=== PATIENT | female | born 1985 | race Caucasian/White ===

== ENCOUNTER 2017-01-23 12:32 | Inpatient (IN) | payer BC, OTHER ==
[2017-01-23] MEDS: DEXTROSE 5%-LACTATED RINGERS 1,000 ML IV SCH ×2 (13:10→18:15)
[2017-01-23 13:23] VITALS: BMI 32.1
[2017-01-23 13:48] LABS: BASOPHIL 0.2 % (0-2.0); EOSINOPHIL 0.6 % (0-4.5); MCH 29.2 pg (25.7-33.7); MCHC 33.7 g/dl (32.0-36.0); MEAN CELL VOLUME 86.7 fl (80-96); MEAN PLT VOLUME 9.9 fl (7.5-11.1); NEUTROPHILS 81.4 % (42.8-82.8); PLATELET COUNT 140 K/MM3 (134-434); RDW 13.8 % (11.6-15.6); WHITE BLOOD COUNT 12.7 K/mm3 (4.0-10.0)
[2017-01-23 14:08] LABS: CALCIUM 8.8 mg/dL (8.5-10.1); COCKROFT - GAULT 185.249; CREATININE 0.6 mg/dL (0.55-1.02)
[2017-01-23 14:13] LABS: INR 0.97 (0.82-1.09); PROTHROMBIN TIME (PATIENT) 10.7 SEC (9.98-11.88)
[2017-01-23 14:43] LABS: HIV 1 & 2 AB NEGATIVE; HIV 1 AGp24 NEGATIVE
--- NOTE | 2017-01-23 18:32 | HP ---
Past Medical History - Primary Care Physician PCP:: Jorge Turner - Admission Chief Complaint: 31 yo P0 @ 40.5wks with painful ctx, No VB, no LOF, + FM History of Present Illness: Patient presented to L&D with c/o ctx @ 12:32 she had overall Category 1 FHR, but had variable FHR deceleration x 1 History Source: Patient Limitations to Obtaining History: No Limitations - Past Medical History ...: 1 ...Para: 0 ...Term: 0 ...: 0 ...Spon : 0 ...Induced : 0 ...Multiple Gestation: 0 ...LMP: 04/10/16 ... Weeks Gestation by Dates: 41.1 ...EDC by Dates: 01/15/17 ...EDC by Sono: 01/18/17 - Past Surgical History Past Surgical History: Yes: None Hx Myomectomy: No Hx Transabdominal Cerclage: No - Smoking History Smoking history: Never smoked Have you smoked in the past 12 months: No - Alcohol/Substance Use Hx Alcohol Use: No History of Substance Use: reports: None - Social History Usual Living Arrangement: Yes: With Spouse History of Recent Travel: No (Herself or partner) Home Medications - Allergies Allergies/Adverse Reactions: Allergies Allergy/AdvReac Type Severity Reaction Status Date / Time No Known Allergies Allergy Verified 01/23/17 13:42 - Home Medications Home Medications: Ambulatory Orders Vit No.130/Iron/FA [ Tablet] 1 tab PO DAILY 01/23/17 Review of Systems - Review of Systems Constitutional: reports: No Symptoms Eyes: reports: No Symptoms HENT: reports: No Symptoms Neck: reports: No Symptoms Cardiovascular: reports: No Symptoms Respiratory: reports: No Symptoms Gastrointestinal: reports: No Symptoms Genitourinary: reports: No Symptoms Integumentary: reports: No Symptoms Neurological: reports: No Symptoms Endocrine: reports: No Symptoms Hematology/Lymphatic: reports: No Symptoms Psychiatric: reports: No Symptoms Physical Exam - Maternity Vital Signs: Vital Signs Temperature 98.9 F 01/23/17 18:00 Pulse Rate 80 01/23/17 18:00 Respiratory Rate 18 01/23/17 18:00 Blood Pressure 130/76 01/23/17 18:00 O2 Sat by Pulse Oximetry (%) Constitutional: Yes: Well Nourished Neck: Yes: WNL Lungs: Clear to auscultation Breast(s): Yes: WNL - Abdominal Exam/OB Fundal Height: 38 (EFW 7.5lb) Number of Fetuses: Single Presentation: Vertex (LOP presentation) Contractions: Yes Regularity: Regular Intensity: Moderate Monitor Mode: External Heart Rate (range): 140 Heart Rate Location: Midline Category: II Accelerations: Uniform Decelerations: Variable (occasional) - Vaginal Exam/OB Vaginal Bleediing: No Speculum Exam: No Dilatation (cm): FD Effacement (%): 100 Amniotic Membrane Status: Ruptured (clear) Amniotic Fluid: Yes: Clear Presentation: Vertex/Position Station: +1 - Physical Exam Musculoskeletal: Yes: WNL Extremities: Yes: WNL Edema: No Integumentary: Yes: WNL Deep Tendon Reflex Grade: Normal +2 ...Motor Strength: WNL Psychiatric: Yes: WNL - Labs Lab Results: CBC, BMP 01/23/17 13:25 01/23/17 13:25 Assessment/Plan 31yo P0 @ 41 wks in Labor Second stage, instructed on how to push MF status reasuring VSS, Afibrile GBS neg anticipate
--- NOTE | 2017-01-23 19:23 | PN ---
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
[2017-01-23] MEDS ORDERED: D5W-LR W/ 20 UNITS OXYTOCIN 1,000 ML IV ONE (20:45)
[2017-01-23] MEDS ORDERED: IBUPROFEN 600 MG TABLET (FP) PO PRN (20:59)
[2017-01-23] MEDS ORDERED: BISACODYL 10 MG SUPP.RECT RC PRN (20:59)
[2017-01-23] MEDS ORDERED: BENZOCAINE 28 GM HEMORRHOIDAL OINTMENT TP PRN (20:59)
[2017-01-23] MEDS ORDERED: METHYLERGONOVINE MALEATE 0.2 MG/1 ML AMP IM PRN (20:59)
[2017-01-23] MEDS ORDERED: WITCH HAZEL 50% (TUCKS) 40 PAD/JAR PAD TP PRN (20:59)
[2017-01-23] MEDS ORDERED: BENZOCAINE 20% 57 GM BOTTLE TP PRN (20:59)
[2017-01-23] MEDS ORDERED: ACETAMINOPHEN 325 MG TABLET (FP) PO PRN (20:59)
[2017-01-23] MEDS ORDERED: D5W-LR W/ 20 UNITS OXYTOCIN 1,000 ML IV SCH (21:00)
--- NOTE | 2017-01-24 07:29 | PN ---
Post Progress Note - Subjective Subjective: 31yo P1 now no complains Post Day: 1 Type of Delivery: Vital Signs: Vital Signs Temperature 98.1 F 01/24/17 06:00 Pulse Rate 91 H 01/24/17 06:00 Respiratory Rate 18 01/24/17 06:00 Blood Pressure 103/62 01/24/17 06:00 O2 Sat by Pulse Oximetry (%) Breast Exam: Yes: Soft Uterus: Yes: Fundus Firm Abdomen/GI: Yes: Abdomen soft Lochia: Yes: Rubra Lochia, amount: Moderate Extremities: Yes: Calves non-tender Perineum: Yes: Intact Activity: Ambulating - Labs Labs: CBC WBC 12.7 K/mm3 (4.0-10.0) H 01/23/17 13:25 RBC 4.53 M/mm3 (3.60-5.2) 01/23/17 13:25 Hgb 13.2 GM/dL (10.7-15.3) 01/23/17 13:25 Hct 39.3 % (32.4-45.2) 01/23/17 13:25 MCV 86.7 fl (80-96) 01/23/17 13:25 MCHC 33.7 g/dl (32.0-36.0) 01/23/17 13:25 RDW 13.8 % (11.6-15.6) 01/23/17 13:25 Plt Count 140 K/MM3 (134-434) 01/23/17 13:25 MPV 9.9 fl (7.5-11.1) 01/23/17 13:25 Neutrophils % 81.4 % (42.8-82.8) 01/23/17 13:25 Lymphocytes % 13.7 % (8-40) 01/23/17 13:25 Monocytes % 4.1 % (3.8-10.2) 01/23/17 13:25 Eosinophils % 0.6 % (0-4.5) 01/23/17 13:25 Basophils % 0.2 % (0-2.0) 01/23/17 13:25 Assessment/Plan 31yo P1 s/p VSS, Afibrile Doing well Rh pos, no need for RgoGam cont. routine care
[2017-01-24 07:55] LABS: BASOPHIL 0.3 % (0-2.0); EOSINOPHIL 0.7 % (0-4.5); MCH 29.6 pg (25.7-33.7); MCHC 33.9 g/dl (32.0-36.0); MEAN CELL VOLUME 87.2 fl (80-96); MEAN PLT VOLUME 10.6 fl (7.5-11.1); NEUTROPHILS 73.2 % (42.8-82.8); PLATELET COUNT 123 K/MM3 (134-434); RDW 13.7 % (11.6-15.6); WHITE BLOOD COUNT 13.7 K/mm3 (4.0-10.0)
[2017-01-24] MEDS: PRENATAL VITAMINS W/ FOLIC ACID TABLET (FP) PO SCH (10:32)
[2017-01-24] MEDS ORDERED: SENNOSIDES/DOCUSATE COMBO (SENNA PLUS) TABLET (UD) PO PRN (22:00)
--- NOTE | 2017-01-25 08:47 | DS ---
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: Vital Signs Temperature 97.8 F 01/24/17 21:53 Pulse Rate 94 H 01/24/17 21:53 Respiratory Rate 20 01/24/17 21:53 Blood Pressure 113/68 01/24/17 21:53 O2 Sat by Pulse Oximetry (%) Constitutional: Yes: Well Nourished, No Distress, Calm Eyes: Yes: WNL, Conjunctiva Clear HENT: Yes: WNL, Atraumatic, Normocephalic Neck: Yes: WNL, Supple, Trachea Midline Cardiovascular: Yes: WNL, Regular Rate and Rhythm Respiratory: Yes: WNL, Regular, CTA Bilaterally Gastrointestinal: Yes: WNL, Normal Bowel Sounds, Soft ...Rectal Exam: Yes: Deferred Renal/: Yes: WNL Pelvis: Yes: WNL External Genitalia: Yes: Normal Internal Exam Deferred: Yes ....Post : Yes: Uterus firm, Uterus non-tender, Slight lochia rubra Breast(s): Yes: WNL Musculoskeletal: Yes: WNL Extremities: Yes: WNL Edema: Yes Edema: LLE: 1+, RLE: 1+ Integumentary: Yes: WNL Neurological: Yes: WNL, Alert, Oriented ...Motor Strength: WNL Psychiatric: Yes: WNL, Alert, Oriented Labs: CBC, BMP 01/24/17 07:30 01/23/17 13:25 Delivery - Delivery Vaginal Delivery: No Problems Type of Anesthesia: None Episiotomy/Laceration: None EBL (cc): 300 Delivery, Single - Stages of Labor Date 1st Stage Initiatied: 01/23/17 Time 1st Stage Initiated: 10:00 Date 2nd Stage Initiated: 01/23/17 Time 2nd Stage Initiated: 18:20 Date of Delivery: 01/23/17 Time of Delivery: 19:07 Time Placenta Delivered: 19:10 Placenta: Yes: Spontaneous - 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
[2017-01-25 09:30] VITALS: BP 109/58; PULSE 84; TEMP 97.9
[2017-01-25] MEDS: PRENATAL VITAMINS W/ FOLIC ACID TABLET (FP) PO SCH (09:30)
== END 2017-01-25 12:20 | disposition home or self-care (01) | DRG 775 ==
LOC: JDEL 12:32 → JLDR 13:00 → J3W 21:23
PROVIDERS: ADMIT Obstetrics & Gynecology; ATTEND Obstetrics & Gynecology
PROC: 10E0XZZ Delivery of Products of Conception, External Approach (ICD-10-PCS; principal; 2017-01-23)
DX: O48.0 Post-term pregnancy (principal); O69.81X0 Labor and delivery complicated by cord around neck, without compression, not applicable or unspecified; Z3A.41 41 weeks gestation of pregnancy; Z37.0 Single live birth
CPT/HCPCS: 36415; 59409; 71020-TC; 80048; 85025; 85610; 85730; 86593; 86850; 86900; 86901; 87389

== ENCOUNTER 2019-03-30 20:00 | Inpatient (IN) | payer BC, OTHER ==
[2019-03-30] MEDS ORDERED: DEXTROSE 5%-LACTATED RINGERS 1,000 ML IV SCH (21:00)
[2019-03-30 21:30] LABS: BASO % 0.3 % (0-2.0); EOS % 0.6 % (0-4.5); HEMATOCRIT 36.8 % (32.4-45.2); HEMOGLOBIN 12.5 GM/dL (10.7-15.3); LYMPH % 28.7 % (8-40); MCH 29.1 pg (25.7-33.7); MEAN CELL VOLUME 85.4 fl (80-96); MEAN PLT VOLUME 11.1 fl (7.5-11.1); MONO % 6.4 % (3.8-10.2); PLATELET COUNT 121 K/MM3 (134-434); RBC 4.31 M/mm3 (3.60-5.2); RDW 14.2 % (11.6-15.6)
[2019-03-30 21:49] LABS: BLOOD UREA NITROGEN 11.5 mg/dL (7-18); CALCIUM 8.7 mg/dL (8.5-10.1); CREATININE 0.8 mg/dL (0.55-1.3); POTASSIUM 3.8 mmol/L (3.5-5.1)
[2019-03-30 21:50] LABS: INR 0.92 (0.83-1.09); PROTHROMBIN TIME (PATIENT) 10.8 SEC (9.7-13.0)
[2019-03-30 21:53] LABS: ACTIVATED PTT 31.7 SECONDS (25.2-36.5)
[2019-03-31] MEDS ORDERED: OXYTOCIN 30 UNITS in 0.9% NS 30 UNIT/500 ML INFUS.BAG IVPB SCH (02:00)
[2019-03-31] MEDS ORDERED: OXYTOCIN 15 UNITS in 0.9% NS 15 UNIT/250 ML INFUS.BAG IVPB SCH (02:00)
[2019-03-31] MEDS ORDERED: OXYTOCIN 30 UNITS in 0.9% NS 30 UNIT/500 ML INFUS.BAG IVPB ONE (02:35)
[2019-03-31] MEDS ORDERED: BUTORPHANOL TARTRATE 1 MG/ML VIAL IVPUSH ONE (04:01)
[2019-03-31] MEDS ORDERED: PROMETHAZINE HCL 25 MG/1 ML VIAL IVPUSH ONE (04:01)
--- NOTE | 2019-03-31 04:06 | HP ---
Past Medical History - Primary Care Physician PCP:: Jorge Turner - Admission Chief Complaint: 40.3 weeks, labor History of Present Illness: 34 yo f 40.3 weeks in labor , cx 5 cm 70 vx -3 mi, fhr cat 1, irregular contraction, no bleeding, no fever History Source: Patient Limitations to Obtaining History: No Limitations - Past Medical History ...: 2 ...Para: 1 ...Term: 1 ...: 0 ...Spon : 0 ...Induced : 0 ...LMP: 06/21/18 ... Weeks Gestation by Dates: 40.1 ...EDC by Dates: 03/28/19 ...EDC by Sono: 03/26/19 - Past Surgical History Past Surgical History: Yes: None Hx Myomectomy: No Hx Transabdominal Cerclage: No - Smoking History Smoking history: Never smoked Have you smoked in the past 12 months: No - Alcohol/Substance Use Hx Alcohol Use: No History of Substance Use: reports: None - Social History Usual Living Arrangement: Yes: With Spouse History of Recent Travel: No (Herself or partner) Home Medications - Allergies Allergies/Adverse Reactions: Allergies Allergy/AdvReac Type Severity Reaction Status Date / Time No Known Allergies Allergy Verified 01/23/17 13:42 - Home Medications Home Medications: Ambulatory Orders Vit No.130/Iron/Folic [ Tablet] 1 tab PO DAILY 01/23/17 Review of Systems - Review of Systems Constitutional: reports: No Symptoms Eyes: reports: No Symptoms HENT: reports: No Symptoms Neck: reports: No Symptoms Cardiovascular: reports: No Symptoms Respiratory: reports: No Symptoms Gastrointestinal: reports: No Symptoms Genitourinary: reports: No Symptoms Breasts: reports: No Symptoms Reported Musculoskeletal: reports: No Symptoms Integumentary: reports: No Symptoms Neurological: reports: No Symptoms Endocrine: reports: No Symptoms Hematology/Lymphatic: reports: No Symptoms Psychiatric: reports: No Symptoms Physical Exam - Maternity Vital Signs: Vital Signs Temperature 98.2 F 03/31/19 03:00 Pulse Rate 78 03/31/19 03:00 Respiratory Rate 20 03/31/19 03:00 Blood Pressure 116/54 L 03/31/19 03:00 O2 Sat by Pulse Oximetry (%) Constitutional: Yes: Well Nourished, No Distress, Calm Eyes: Yes: WNL, Conjunctiva Clear, EOM Intact HENT: Yes: WNL, Atraumatic, Normocephalic Neck: Yes: WNL, Supple, Trachea Midline Cardiovascular: Yes: WNL, Regular Rate and Rhythm Breast(s): Yes: WNL - Abdominal Exam/OB Fundal Height: 40 Number of Fetuses: Single Presentation: Vertex Contractions: Yes Regularity: Irregular Intensity: Moderate Monitor Mode: External Heart Rate Location: [facility] Category: I Accelerations: Uniform Decelerations: None - Vaginal Exam/OB Vaginal Bleediing: No Speculum Exam: No Dilatation (cm): 5 cm Effacement (%): 70 Amniotic Membrane Status: Bulging Presentation: Vertex/Position Station: -3 - Physical Exam Musculoskeletal: Yes: WNL Extremities: Yes: WNL Edema: LLE: Trace, RLE: Trace Deep Tendon Reflex Grade: Normal +2 ...Motor Strength: WNL Psychiatric: Yes: WNL - Labs Lab Results: CBC, BMP 03/30/19 21:00 03/30/19 21:00 Problem List - Problems (1) Post term over 40 weeks Code(s): O48.0 - POST-TERM (2) Labor established Code(s): [id number] - Assessment/Plan admit, fhm pitocin stimulation for irregular contraction
[2019-03-31 04:12] VITALS: BMI 34.7
--- NOTE | 2019-03-31 07:39 | PN ---
Progress Note (short form) - Note Progress Note: cx 7 cm 80 vx -2 mi, fhr cat1, irregular contraction Problem List - Problems (1) Post term over 40 weeks Code(s): O48.0 - POST-TERM (2) Labor established Code(s): [id number] -
[2019-03-31] MEDS ORDERED: OXYTOCIN 20 UNITS in 0.9% NS 20 UNIT/1,000 ML INFUS.BAG IV ONE (08:47)
--- NOTE | 2019-03-31 08:47 | PN ---
Progress Note (short form) - Note Progress Note: cx 8 cm ,80 vx -2 mi, fhr cat 1 Problem List - Problems (1) Post term over 40 weeks Code(s): O48.0 - POST-TERM (2) Labor established Code(s): [id number] -
--- NOTE | 2019-03-31 09:52 | PN ---
Progress Note (short form) - Note Progress Note: cx 8 cm , 80 vx -1 arom, clear . fhr cat 1, regullar contraction Problem List - Problems (1) Post term over 40 weeks Code(s): O48.0 - POST-TERM (2) Labor established Code(s): [id number] -
[2019-03-31] MEDS ORDERED: LIDOCAINE HCL 1% PRESERVATIVE FREE - 30ML VIAL ONE (10:19)
[2019-03-31] MEDS ORDERED: METHYLERGONOVINE MALEATE 0.2 MG/1 ML AMP IM PRN (11:05)
[2019-03-31] MEDS ORDERED: BENZOCAINE 20% 57 GM BOTTLE TP PRN (11:05)
[2019-03-31] MEDS ORDERED: IBUPROFEN 600 MG TABLET (FP) PO PRN (11:05)
[2019-03-31] MEDS ORDERED: BISACODYL 10 MG SUPP.RECT RC PRN (11:05)
[2019-03-31] MEDS ORDERED: ACETAMINOPHEN 325 MG TABLET (FP) PO PRN (11:05)
[2019-03-31] MEDS ORDERED: WITCH HAZEL 50% (TUCKS) 40 PAD/JAR PAD TP PRN (11:05)
[2019-03-31] MEDS ORDERED: BENZOCAINE 28 GM HEMORRHOIDAL OINTMENT TP PRN (11:05)
[2019-03-31] MEDS ORDERED: METHYLERGONOVINE MALEATE 0.2 MG/1 ML AMP IM ONE (11:10)
[2019-03-31] MEDS ORDERED: D5W-LR W/ 20 UNITS OXYTOCIN 1,000 ML IV SCH (11:15)
[2019-03-31] MEDS ORDERED: OXYTOCIN 20 UNITS in 0.9% NS 20 UNIT/1,000 ML INFUS.BAG IV SCH (11:15)
--- NOTE | 2019-03-31 11:16 | PN ---
Delivery - Delivery Vaginal Delivery: No Problems (cx fully dilated , head on pernium , head delivered, cord around neck once reduced , ant and post. shoulder with no difficulty , live baby boy, 8/9 .placeta delivered complete . no laceration, ebl 300 cc, no complication), Spontaneous Type of Anesthesia: Local Episiotomy/Laceration: None EBL (cc): 300 Delivery, Single - [place] Feeding Plan Initial Plan: Elected not to breastfeed exclusively throughout hospitalization
[2019-03-31] MEDS: FERROUS SO4 325 MG TABLET (FP) PO SCH (18:29)
--- NOTE | 2019-04-01 07:34 | PN ---
Progress Note (short form) - Note Progress Note: ppd 1 doing well, viods ok, no excess vaginal bleeding CBC, BMP 03/30/19 21:00 03/30/19 21:00 Last Vital Signs Temp Pulse Resp BP Pulse Ox 98.1 F 78 18 120/80 96 04/01/19 06:00 04/01/19 06:00 04/01/19 06:00 04/01/19 06:00 03/31/19 12:00 abdomen soft, no distension, no cva uterus firm, non tender lochia mild plan ambulate , cbc Problem List - Problems (1) Post term over 40 weeks Code(s): O48.0 - POST-TERM (2) Labor established Code(s): [id number] -
[2019-04-01 08:38] LABS: BASO % 0.3 % (0-2.0); EOS % 0.7 % (0-4.5); HEMATOCRIT 35.6 % (32.4-45.2); HEMOGLOBIN 12.2 GM/dL (10.7-15.3); LYMPH % 26.5 % (8-40); MCH 29.6 pg (25.7-33.7); MCHC 34.2 g/dl (32.0-36.0); MEAN CELL VOLUME 86.3 fl (80-96); MEAN PLT VOLUME 9.9 fl (7.5-11.1); MONO % 5.6 % (3.8-10.2); NEUT % 66.9 % (42.8-82.8); PLATELET COUNT 122 K/MM3 (134-434); RBC 4.12 M/mm3 (3.60-5.2); RDW 14.5 % (11.6-15.6); WHITE BLOOD COUNT 8.7 K/mm3 (4.0-10.0)
[2019-04-01] MEDS: FERROUS SO4 325 MG TABLET (FP) PO SCH ×2 (09:00→17:11)
[2019-04-01] MEDS: PRENATAL VITAMINS W/ FOLIC ACID TABLET (FP) PO SCH (09:00)
[2019-04-01] MEDS ORDERED: SENNOSIDES/DOCUSATE COMBO (SENNA PLUS) TABLET (UD) PO PRN (22:00)
--- NOTE | 2019-04-02 08:44 | DS ---
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: Vital Signs Temperature 98.0 F 04/01/19 21:17 Pulse Rate 74 04/01/19 21:17 Respiratory Rate 20 04/01/19 21:17 Blood Pressure 121/80 04/01/19 21:17 O2 Sat by Pulse Oximetry (%) 96 03/31/19 12:00 Constitutional: Yes: Well Nourished, No Distress, Calm Eyes: Yes: WNL, Conjunctiva Clear HENT: Yes: WNL, Atraumatic, Normocephalic Neck: Yes: WNL, Supple, Trachea Midline Cardiovascular: Yes: WNL, Regular Rate and Rhythm Respiratory: Yes: WNL, Regular, CTA Bilaterally Gastrointestinal: Yes: WNL, Normal Bowel Sounds, Soft ...Rectal Exam: Yes: Hemorrhoids/External Renal/: Yes: WNL Pelvis: Yes: WNL External Genitalia: Yes: Normal ....Post : Yes: Uterus firm, Uterus non-tender Breast(s): Yes: WNL Musculoskeletal: Yes: WNL Extremities: Yes: WNL Integumentary: Yes: WNL Wound/Incision: Yes: Clean/Dry, Well Approximated Neurological: Yes: WNL, Alert, Oriented ...Motor Strength: WNL Psychiatric: Yes: WNL, Alert, Oriented Labs: CBC, BMP 04/01/19 07:42 03/30/19 21:00 Delivery - Delivery Vaginal Delivery: No Problems (cx fully dilated , head on pernium , head delivered, cord around neck once reduced , ant and post. shoulder with no difficulty , live baby boy, 8/9 .placeta delivered complete . 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 Infant Gender: Male Weight: 8 lb 8 oz Position: Left Total Hours ROM (Hrs/Mins): 1Hr/7Mins - 1 Minute Total Score: 8 5 Minutes Total Score: 9 - Feeding Plan Initial Plan: Elected not to breastfeed exclusively throughout hospitalization Discharge Summary Reason For Visit: LABOR Current Active Problems Labor established (Acute) Post term over 40 weeks (Acute) Procedures: Principal: Normal vaginal delivery Other Procedures: Penile circumcision Condition: Good - Instructions Diet, Activity, Other Instructions: Physical activity Resume your normal everyday activity as tolerated no heavy lifting or exercise until seen by your surgeon. You may walk unlimited katarina of and climb stairs. You may resume driving the car when you feel safe and comfortable behind the wheel. No sexual activity as instructed. Wound care If you have a bandage, leave it on, and keep dry for 48-72 hours. After that time discard the outer bandage. If they are tapes on the skin under the out of bandage leave them in place. They will peel off in the next 7 to 10 days. Do Not Peel them off. You may shower the day after surgery. If there are tapes present on the skin, you may shower over them. Diet There are no dietary restrictions. Eat healthy, high-fiber foods. Drink 6 to 8 glasses of liquid each day. This will assist in keeping your bowels are regular. Pain management You may take Tylenol or acetaminophen or Ibuprofen (for example, Motrin, Advil etc.) from my pain prescription medication is ordered should be taken as prescribed for moderate to severe pain. Call MD for any of the following: Severe pain not relieved by medication Fever of 101 or higher Excessive bleeding or drainage on dressing Inability to urinate Referrals: Landen Ryan MD [Staff Physician] - Disposition: HOME - Home Medications Comprehensive Discharge Medication List: Ambulatory Orders Vit No.130/Iron/Folic [ Tablet] 1 tab PO DAILY 01/23/17
[2019-04-02] MEDS: PRENATAL VITAMINS W/ FOLIC ACID TABLET (FP) PO SCH (10:15)
[2019-04-02] MEDS: FERROUS SO4 325 MG TABLET (FP) PO SCH (10:15)
[2019-04-02 14:04] VITALS: BP 121/78; PULSE 90; TEMP 98.7
== END 2019-04-02 13:50 | disposition home or self-care (01) | DRG 807 ==
LOC: JDEL 20:00 → JLDR 21:00 → J3W 03-31 12:55
PROVIDERS: ADMIT Obstetrics & Gynecology; ATTEND Obstetrics & Gynecology
PROC: 10E0XZZ Delivery of Products of Conception, External Approach (ICD-10-PCS; principal; 2019-03-31)
DX: O48.0 Post-term pregnancy (principal); Z37.0 Single live birth; O69.81X0 Labor and delivery complicated by cord around neck, without compression, not applicable or unspecified; Z3A.40 40 weeks gestation of pregnancy
CPT/HCPCS: 36415; 36600; 59409; 80048; 82803; 85025; 85610; 85730; 86593; 86850; 86900; 86901; 87389